=== PATIENT | male | born 1990 | race Caucasian/White ===

== ENCOUNTER 2019-03-29 12:11 | Emergency (ER) | payer SELFPAY ==
--- NOTE | 2019-03-29 12:38 | NUR ---
NO ANSWER AT [id number]
--- NOTE | 2019-03-29 12:58 | NUR ---
no ANSWER IN LOBBY AT [id number]
--- NOTE | 2019-03-29 13:07 | NUR ---
NO ANSWER AT [id number]
== END 2019-03-29 13:27 | disposition left against medical advice (07) ==
LOC: ED 13:21
DX: R10.9 Unspecified abdominal pain (principal); Z53.21 Procedure and treatment not carried out due to patient leaving prior to being seen by health care provider

== ENCOUNTER 2019-05-10 14:39 | Inpatient (IN) | payer MEDICAID ==
[~2019-05-10] VITALS: Ht 182.9 cm; Wt 64.9 kg
[2019-05-10] MEDS ORDERED: DIPH,PERTUSS(ACELL),TET VAC/PF 0.5 ML IM-VACC ONE ×2 (15:00→15:21)
[2019-05-10] MEDS ORDERED: VANCOMYCIN 1,300 MG in SODIUM CHLORIDE 0.9% 250 ML IV ONE (15:00)
[2019-05-10] MEDS ORDERED: SODIUM CHLORIDE FLUSH 10ML SYR IVF ONE (15:00)
[2019-05-10] MEDS ORDERED: LIDOCAINE-MPF 1%, 5ML INFIL ONE (15:00)
[2019-05-10] MEDS ORDERED: VANCOMYCIN PER PHARMACY IV ONE (15:00)
[2019-05-10] MEDS ORDERED: AMPICILLIN/SULBACTAM 3 GM in SODIUM CHLORIDE 0.9% 100 ML IV ONE (15:00)
[2019-05-10 15:10] LABS: BASOPHILS # (AUTO) 0.05 x10^3/uL (0-0.1); BASOPHILS % (AUTO) 0 % (0-1); EOSINOPHILS # (AUTO) 0.14 x10^3/uL (0-0.4); EOSINOPHILS % (AUTO) 1 % (1-7); LYMPHOCYTES # (AUTO) 1.12 x10^3/uL (1-3.4); LYMPHOCYTES % (AUTO) 10 % (22-44); MD NO; MEAN CORPUSCULAR HEMOGLOBIN 29.6 pg (27.5-34.5); MEAN CORPUSCULAR HGB CONC 32.6 g/dL (33.2-36.2); MEAN CORPUSCULAR VOLUME 90.8 fL (81-97); MEAN PLATELET VOLUME 8.4 fL (7.4-10.4); MONOCYTES # (AUTO) 0.79 x10^3/uL (0.2-0.8); MONOCYTES % (AUTO) 7 % (2-9); NEUTROPHILS # (AUTO) 9.48 x10^3/uL (1.8-6.8); NEUTROPHILS % (AUTO) 82 % (42-75); PLATELET COUNT 218 x10^3/uL (130-400); RED BLOOD COUNT 4.26 x10^6/uL (4.38-5.82); RED CELL DISTRIBUTION WIDTH 12.7 % (9.4-14.8)
--- NOTE | 2019-05-10 15:10 | NUR ---
THIS IS A 28 YEAR OLD MALE WHO C/O OF BILATERAL ARM REDNESS AND SWELLING FOR IV DRUG USE.
--- NOTE | 2019-05-10 15:14 | NUR ---
ASKED PATIENT IF HE WOULD LIKE ASSISTANCE WITH ASSISTANCE WITH IV DRUG ABUSE. PT STATES HE DOES NOT WANT HELP
--- NOTE | 2019-05-10 15:16 | NUR ---
PT LAST USE OF IV DRUGS WAS THIS AM.
[2019-05-10 15:19] LABS: ALBUMIN 3.3 g/dL (3.4-5.0); ANION GAP 7 mmol/L (5-15); CALCIUM 8.6 mg/dL (8.5-10.1); CHLORIDE 101 mmol/L (98-107); CREATININE 0.85 mg/dL (0.7-1.3)
--- NOTE | 2019-05-10 15:38 | NUR ---
BLOOD CULTURES DRAWN PRIOR TO ANTBX
--- NOTE | 2019-05-10 16:21 | NUR ---
PT SLEEPING, RESP EVEN AND UNLABORED. IV INFUSING WELL
[2019-05-10] MEDS ORDERED: OMNIPAQUE 350 MG/ML, 100ML BOTTLE ONE (17:15)
--- NOTE | 2019-05-10 17:17 | NUR ---
IV INFUSING WELL. PT CONTINUES TO SLEEP, RESP EVEN AND UNLABORED.
--- NOTE | 2019-05-10 18:56 | NUR ---
received report from BENJI Murcia. awaiting bed assignment.
--- NOTE | 2019-05-10 19:49 | NUR ---
PA hospitalist at bedside.
[2019-05-10] MEDS ORDERED: VANCOMYCIN PER PHARMACY MC PRN (20:00)
[2019-05-10] MEDS ORDERED: LIDODERM 5% PATCH TD PRN (20:00)
[2019-05-10] MEDS ORDERED: DOCUSATE 100 MG CAPSULE PO PRN (20:00)
[2019-05-10] MEDS ORDERED: ACETAMINOPHEN 325 MG TABLET PO PRN (20:00)
[2019-05-10] MEDS ORDERED: ENALAPRILAT 1.25 MG/ML, 2ML IVPush PRN (20:00)
[2019-05-10] MEDS ORDERED: ONDANSETRON ODT 4 MG PO PRN (20:00)
--- NOTE | 2019-05-10 20:15 | NUR ---
bed assigned. report to BENJI Cabrera
[2019-05-10] MEDS ORDERED: PHARMACOKINETIC MONITORING MC PRN (20:30)
[2019-05-10 20:51] LABS: ALBUMIN 3.3 g/dL (3.4-5.0); BILIRUBIN, DIRECT 0.1 mg/dL (0.1-0.2)
[2019-05-10 20:53] LABS: BILIRUBIN,INDIRECT 0.4 mg/dL (0.0-2.0); BILIRUBIN,TOTAL 0.5 mg/dL (0.2-1.0); TOTAL PROTEIN 7.2 g/dL (6.4-8.2)
[2019-05-10] MEDS ORDERED: TEMAZEPAM 15 MG CAPSULE PO PRN (21:00)
[2019-05-10 21:40] VITALS: BP 117/76
[2019-05-10] MEDS: AMPICILLIN/SULBACTAM 3 GM in SODIUM CHLORIDE 0.9% 100 ML IV SCH (23:21)
[2019-05-11 01:33] VITALS: BP 110/71
[2019-05-11] MEDS: VANCOMYCIN 1,300 MG in SODIUM CHLORIDE 0.9% 250 ML IV SCH ×2 (04:14→17:22)
[2019-05-11 05:33] LABS: BASOPHILS # (AUTO) 0.03 x10^3/uL (0-0.1); BASOPHILS % (AUTO) 0 % (0-1); EOSINOPHILS # (AUTO) 0.01 x10^3/uL (0-0.4); EOSINOPHILS % (AUTO) 0 % (1-7); LYMPHOCYTES % (AUTO) 8 % (22-44); MD NO; MEAN CORPUSCULAR HEMOGLOBIN 29.8 pg (27.5-34.5); MEAN CORPUSCULAR VOLUME 90.3 fL (81-97); MEAN PLATELET VOLUME 9.3 fL (7.4-10.4); MONOCYTES # (AUTO) 0.82 x10^3/uL (0.2-0.8); MONOCYTES % (AUTO) 7 % (2-9); NEUTROPHILS # (AUTO) 10.23 x10^3/uL (1.8-6.8); NEUTROPHILS % (AUTO) 85 % (42-75); PLATELET COUNT 206 x10^3/uL (130-400); RED BLOOD COUNT 4.21 x10^6/uL (4.38-5.82); RED CELL DISTRIBUTION WIDTH 12.5 % (9.4-14.8)
[2019-05-11 05:45] LABS: ANION GAP 8 mmol/L (5-15); CALCIUM 8.4 mg/dL (8.5-10.1); CHLORIDE 104 mmol/L (98-107); CREATININE 0.69 mg/dL (0.7-1.3)
[2019-05-11] MEDS: AMPICILLIN/SULBACTAM 3 GM in SODIUM CHLORIDE 0.9% 100 ML IV SCH ×3 (06:39→23:07)
[2019-05-11 07:01] VITALS: BP 115/66
[2019-05-11 12:23] VITALS: BP 127/74
[2019-05-11] MEDS: HYDROcodone/APAP 5/325 TABLET PO PRN (13:16)
[2019-05-11 16:11] LABS: BILIRUBIN, DIRECT 0.1 mg/dL (0.1-0.2); BILIRUBIN,INDIRECT 0.6 mg/dL (0.0-2.0); BILIRUBIN,TOTAL 0.7 mg/dL (0.2-1.0); TOTAL PROTEIN 6.7 g/dL (6.4-8.2)
[2019-05-11] MEDS: ENOXAPARIN 40 MG/0.4 ML SQ SCH ×2 (16:30→17:22)
[2019-05-11 20:49] VITALS: BP 121/78
[2019-05-12 02:23] VITALS: BP 120/75
[2019-05-12] MEDS: VANCOMYCIN 1,300 MG in SODIUM CHLORIDE 0.9% 250 ML IV SCH ×2 (03:46→18:13)
[2019-05-12] MEDS: HYDROcodone/APAP 5/325 TABLET PO PRN (03:52)
[2019-05-12 04:37] LABS: BASOPHILS # (AUTO) 0.03 x10^3/uL (0-0.1); BASOPHILS % (AUTO) 0 % (0-1); EOSINOPHILS # (AUTO) 0.05 x10^3/uL (0-0.4); EOSINOPHILS % (AUTO) 0 % (1-7); LYMPHOCYTES # (AUTO) 1.12 x10^3/uL (1-3.4); LYMPHOCYTES % (AUTO) 8 % (22-44); MD NO; MEAN CORPUSCULAR HEMOGLOBIN 30.5 pg (27.5-34.5); MEAN CORPUSCULAR VOLUME 92.5 fL (81-97); MEAN PLATELET VOLUME 8.8 fL (7.4-10.4); MONOCYTES # (AUTO) 1.05 x10^3/uL (0.2-0.8); MONOCYTES % (AUTO) 8 % (2-9); NEUTROPHILS # (AUTO) 11.11 x10^3/uL (1.8-6.8); NEUTROPHILS % (AUTO) 83 % (42-75); PLATELET COUNT 221 x10^3/uL (130-400); RED BLOOD COUNT 4.38 x10^6/uL (4.38-5.82); RED CELL DISTRIBUTION WIDTH 13.1 % (9.4-14.8)
[2019-05-12 04:47] LABS: ANION GAP 8 mmol/L (5-15); CALCIUM 8.6 mg/dL (8.5-10.1); CHLORIDE 106 mmol/L (98-107); CREATININE 0.73 mg/dL (0.7-1.3)
[2019-05-12 06:59] VITALS: BP 131/76
[2019-05-12] MEDS: AMPICILLIN/SULBACTAM 3 GM in SODIUM CHLORIDE 0.9% 100 ML IV SCH ×3 (07:37→23:03)
[2019-05-12 10:39] LABS: AMPHETAMINE SCREEN, URINE Negative (Negative); BARBITURATE SCREEN, URINE Negative (Negative); BENZODIAZEPINE SCREEN, URINE Negative (Negative); CANNABINOID SCREEN, URINE Negative (Negative); COCAINE SCREEN, URINE Negative (Negative); METHADONE SCREEN, URINE Negative (Negative); OPIATE SCREEN, URINE Positive (Negative)
[2019-05-12] MEDS: LORazepam 2 MG/ML, 1ML IVPush PRN ×4 (11:59→22:24)
[2019-05-12 12:25] VITALS: BP 107/66
[2019-05-12 19:48] VITALS: BP 104/65
[2019-05-12] MEDS: ENOXAPARIN 40 MG/0.4 ML SQ SCH (21:00)
[2019-05-13 01:52] VITALS: BP 145/83
[2019-05-13 03:47] LABS: BASOPHILS # (AUTO) 0.04 x10^3/uL (0-0.1); BASOPHILS % (AUTO) 0 % (0-1); EOSINOPHILS # (AUTO) 0.13 x10^3/uL (0-0.4); EOSINOPHILS % (AUTO) 1 % (1-7); LYMPHOCYTES # (AUTO) 1.57 x10^3/uL (1-3.4); LYMPHOCYTES % (AUTO) 14 % (22-44); MD NO; MEAN CORPUSCULAR HEMOGLOBIN 29.8 pg (27.5-34.5); MEAN CORPUSCULAR HGB CONC 32.5 g/dL (33.2-36.2); MEAN CORPUSCULAR VOLUME 91.6 fL (81-97); MEAN PLATELET VOLUME 8.7 fL (7.4-10.4); MONOCYTES # (AUTO) 0.66 x10^3/uL (0.2-0.8); MONOCYTES % (AUTO) 6 % (2-9); NEUTROPHILS # (AUTO) 8.91 x10^3/uL (1.8-6.8); NEUTROPHILS % (AUTO) 79 % (42-75); PLATELET COUNT 253 x10^3/uL (130-400); RED BLOOD COUNT 4.54 x10^6/uL (4.38-5.82); RED CELL DISTRIBUTION WIDTH 12.9 % (9.4-14.8)
[2019-05-13 03:50] LABS: ANION GAP 5 mmol/L (5-15); CALCIUM 8.7 mg/dL (8.5-10.1); CHLORIDE 107 mmol/L (98-107); CREATININE 0.74 mg/dL (0.7-1.3)
[2019-05-13 03:51] LABS: VANCOMYCIN,TROUGH 10.9 mcg/mL (5.0-10.0)
[2019-05-13] MEDS: LORazepam 2 MG/ML, 1ML IVPush PRN ×2 (04:47→08:07)
[2019-05-13] MEDS: VANCOMYCIN 1,300 MG in SODIUM CHLORIDE 0.9% 250 ML IV SCH (06:03)
[2019-05-13 06:26] VITALS: BP 120/67
[2019-05-13] MEDS: AMPICILLIN/SULBACTAM 3 GM in SODIUM CHLORIDE 0.9% 100 ML IV SCH (08:12)
== END 2019-05-13 10:00 | disposition left against medical advice (07) | DRG 603 ==
LOC: ED 15:34 → EDIP 17:50 → 3NW 20:37 → 3NE 05-12 15:11
PROVIDERS: ADMIT Hospitalist; ATTEND Hospitalist
DX: L02.413 Cutaneous abscess of right upper limb (principal); E87.1 Hypo-osmolality and hyponatremia; L03.113 Cellulitis of right upper limb; Z59.0 Homelessness; B19.20 Unspecified viral hepatitis C without hepatic coma; D64.9 Anemia, unspecified; F10.120 Alcohol abuse with intoxication, uncomplicated; F11.10 Opioid abuse, uncomplicated; L02.414 Cutaneous abscess of left upper limb; Z53.21 Procedure and treatment not carried out due to patient leaving prior to being seen by health care provider
CPT/HCPCS: 36415; 80048; 80076; 80202; 80307; 82040; 83605; 84145; 85025; 87040; 87070; 87077; 87147; 87186; 87205; 90471; 90715; 93306; 96365; 99285; G0378; J0295; J1650; J3370; Q0162; Q9967; J2060; J7050

== ENCOUNTER 2019-10-14 14:15 | Emergency (ER) | payer MEDICAID ==
[~2019-10-14] VITALS: Ht 175.3 cm; Wt 60.0 kg
--- NOTE | 2019-10-14 14:33 | NUR ---
PT CALM & COOPERATIVE, STATES HE "DOESNT WANT TO BE HERE & WASTE ANYONES TIME, IM SORRY." PT ENCOURAGED TO WAIT & BE SEEN. PT IN AGREEMENT. PT SLEEPY. ON MONITOR. WILL CTM.
[2019-10-14 15:05] VITALS: BP 111/62
== END 2019-10-14 15:07 | disposition home or self-care (01) ==
LOC: ED 14:44
DX: L03.114 Cellulitis of left upper limb (principal); L03.113 Cellulitis of right upper limb; F11.10 Opioid abuse, uncomplicated; F15.10 Other stimulant abuse, uncomplicated; Z87.891 Personal history of nicotine dependence
CPT/HCPCS: 99283

== ENCOUNTER 2021-01-25 21:38 | Emergency (ER) | payer MEDICAID ==
[~2021-01-25] VITALS: Ht 182.9 cm; Wt 66.0 kg
[2021-01-25] MEDS ORDERED: LIDOCAINE-MPF 1%, 5ML ONE (22:49)
[2021-01-25] MEDS ORDERED: LIDOCAINE-MPF 1%, 5ML INFIL ONE (23:00)
[2021-01-25] MEDS ORDERED: NEOSPORIN OINT. PKT 1 PACKET ONE (23:16)
[2021-01-25 23:23] VITALS: BP 135/82
== END 2021-01-25 23:32 | disposition home or self-care (01) ==
LOC: ED 23:30
DX: L03.221 Cellulitis of neck (principal); F10.10 Alcohol abuse, uncomplicated; F15.10 Other stimulant abuse, uncomplicated; F11.10 Opioid abuse, uncomplicated; F17.210 Nicotine dependence, cigarettes, uncomplicated; Z72.9 Problem related to lifestyle, unspecified; Y90.0 Blood alcohol level of less than 20 mg/100 ml
CPT/HCPCS: 10060; 99283; 99406